=== PATIENT | female | born 2000 | race Caucasian/White ===

== ENCOUNTER 2021-04-06 13:18 | Emergency (ER) | payer OTHER ==
[~2021-04-06] VITALS: Ht 154.9 cm; Wt 59.4 kg
[2021-04-06 13:21] VITALS: BP_SYST 124
--- NOTE | 2021-04-06 13:24 | NUR ---
RECEIVED AND IN ROOM, CALM, ALERT, RESP UNLABORED, SKIN WARM AND DRY
--- NOTE | 2021-04-06 13:29 | NUR ---
URINE SAMPLE OBTAINED, PT CALM, ALERT, RESP UNLABORED, NO DYSPNEA, DENIES VOMITING TOLD BY HER MD TO GO TO ER, C/O LIGHTHEADEDNESS AND DIZZINESS
[2021-04-06] MEDS ORDERED: ONDA-8 TL (14:36)
--- NOTE | 2021-04-06 14:42 | NUR ---
DR FABIAN IN TO ASSESS
--- NOTE | 2021-04-06 14:44 | NUR ---
ORTHO NEGATIVE, DENIES DIZZINESS. TOLERATING PO WELL,
--- NOTE | 2021-04-06 14:47 | NUR ---
Patient given written and verbal discharge instructions and verbalizes understanding. ER MD discussed with patient the results and treatment provided. Patient in stable condition. ID arm band removed. Rx given. Patient educated on pain management and to follow up with PMD. Pain Scale . Opportunity for questions provided and answered. Medication side effect fact sheet provided.
[2021-04-06 14:48] VITALS: BP_SYST 115
== END 2021-04-06 14:47 | disposition home or self-care (01) ==
LOC: SED 13:18
DX: O26.891 Other specified pregnancy related conditions, first trimester (principal); R42 Dizziness and giddiness; R11.0 Nausea; J45.909 Unspecified asthma, uncomplicated; Z3A.10 10 weeks gestation of pregnancy; Z79.899 Other long term (current) drug therapy
CPT/HCPCS: 81002; 81025; 99283